=== PATIENT | female | born 1995 | race Caucasian/White ===

== ENCOUNTER 2017-02-24 16:28 | Emergency (ER) | payer OTHER ==
[~2017-02-24] VITALS: Ht 170.2 cm; Wt 124.7 kg
[2017-02-24 16:28] VITALS: BP 119/49
[~2017-02-24 16:28] MED LIST: LAMICTAL5 MG PO; PRENATAL COMPL1 EACH PO; PROZAC10 MG PO; RISPERDAL 1 MG T1 MG PO; TOPAMAX 25 MG T25 M1 PO
[2017-02-24] MEDS ORDERED: MOBIC15 MG PO (16:47)
[2017-02-24] MEDS ORDERED: CYCLOBENZAPRINE5 MG PO (16:47)
[2017-02-24] MEDS ORDERED: PREDNISONE 20 M20 MG PO (16:47)
== END 2017-02-24 17:08 | disposition home or self-care (01) ==
LOC: ER 16:28
DX: S39.012A Strain of muscle, fascia and tendon of lower back, initial encounter (principal); F31.9 Bipolar disorder, unspecified; W94.12XA Exposure to other prolonged low air pressure, initial encounter; Y93.89 Activity, other specified; Y92.89 Other specified places as the place of occurrence of the external cause; Y99.9 Unspecified external cause status

== ENCOUNTER 2017-05-25 16:28 | Emergency (ER) | payer OTHER ==
[~2017-05-25] VITALS: Ht 170.2 cm; Wt 127.0 kg
[~2017-05-25 16:28] MED LIST changes: +CYCLOBENZAPRINE5 MG PO; +MOBIC15 MG PO; +PREDNISONE 20 M20 MG PO
[2017-05-25 16:30] VITALS: BP 117/72
[2017-05-25] MEDS ORDERED: TRAZODONE HCL50 MG PO (17:18)
[2017-05-25] MEDS ORDERED: NORCO 5-325 TA1 EACH PO (17:22)
== END 2017-05-25 17:46 | disposition home or self-care (01) ==
LOC: ER 16:28
DX: M54.5 Low back pain (principal); G89.29 Other chronic pain; E66.9 Obesity, unspecified; F31.9 Bipolar disorder, unspecified; F41.9 Anxiety disorder, unspecified

== ENCOUNTER 2018-02-19 10:38 | Emergency (ER) | payer OTHER ==
[~2018-02-19] VITALS: Ht 170.2 cm; Wt 136.1 kg
[~2018-02-19 10:38] MED LIST changes: +NORCO 5-325 TA1 EACH PO; +TRAZODONE HCL50 MG PO
[2018-02-19 10:42] VITALS: BP 125/89
== END 2018-02-19 11:01 | disposition home or self-care (01) ==
LOC: ER 10:38
DX: J02.0 Streptococcal pharyngitis (principal); F41.9 Anxiety disorder, unspecified; F31.9 Bipolar disorder, unspecified

== ENCOUNTER 2018-05-01 14:05 | Emergency (ER) | payer OTHER ==
[~2018-05-01] VITALS: Ht 170.2 cm; Wt 136.1 kg
[2018-05-01 14:14] VITALS: BP 131/66
[2018-05-01 14:30] LABS: URINE BILIRUBIN NEGATIVE (Negative); URINE BLOOD NEGATIVE (Negative); URINE CLARITY CLEAR; URINE COLOR YELLOW; URINE GLUCOSE-RANDOM* NEGATIVE (Negative); URINE KETONES TRACE (Negative); URINE LEUKOCYTES-REFLEX NEGATIVE (Negative); URINE PROTEIN (DIPSTICK) NEGATIVE (Negative); URINE SPECIFIC GRAVITY >= 1.030 (1.005-1.035)
[2018-05-01 14:31] LABS: URINE NITRITE-REFLEX POSITIVE (Negative)
[2018-05-01 14:40] LABS: SQUAMOUS >10 Many /LPF (0-3)
[2018-05-01 14:41] LABS: BACTERIA-REFLEX >30 Many /HPF (None Seen); CASTS None Seen /LPF (None Seen); CRYSTALS None Seen /LPF (None Seen); URINE RBC None Seen /HPF (0-2); URINE WBC-REFLEX 6-15 Few /HPF (0-5)
[2018-05-01] MEDS ORDERED: KEFLEX500 M1 PO (14:59)
[2018-05-01] MEDS ORDERED: NAPROSYN500 MG PO (14:59)
== END 2018-05-01 15:28 | disposition home or self-care (01) ==
LOC: ER 14:05
PROVIDERS: Physician Assistant
DX: S86.012A Strain of left Achilles tendon, initial encounter (principal); M21.42 Flat foot [pes planus] (acquired), left foot; M21.41 Flat foot [pes planus] (acquired), right foot; N39.0 Urinary tract infection, site not specified; F31.9 Bipolar disorder, unspecified; F41.9 Anxiety disorder, unspecified; X50.3XXA Overexertion from repetitive movements, initial encounter; Y93.01 Activity, walking, marching and hiking; Y92.89 Other specified places as the place of occurrence of the external cause; Y99.8 Other external cause status